=== PATIENT | male | born 1995 | race Caucasian/White ===

== ENCOUNTER 2021-12-07 20:13 | Emergency (ER) | payer OTHER, BC ==
[~2021-12-07] VITALS: Ht 185 cm; Wt 93.0 kg
[2021-12-07 20:43] VITALS: BP 121/71
--- NOTE | 2021-12-07 21:40 | ED General ---
General Chief Complaint: Respiratory Problems Stated Complaint: WC,SOB,HEADACHE Nursing Triage Note: pt presents with known carbon-monixide exposure. reports h/a, sob. 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 His coworker presented earlier in the evening and was diagnosed with carbon monoxide poisoning with a carboxyhemoglobin level of 15. They were running a new oil heater in the garage and possibly did not have adequate ventilation. Apparently multiple coworkers had similar symptoms. He is feeling better now but states he still feels dizzy when he is up and moving around. Allergies and Home Medications Allergies Coded Allergies: No Known Drug Allergies (Unverified , 12/12/10) Patient Home Medication List Home Medication List Reviewed: Yes Review of Systems Review of Systems Constitutional: no symptoms reported EENTM: no symptoms reported Respiratory: see HPI Cardiovascular: see HPI Gastrointestinal: no symptoms reported Genitourinary: no symptoms reported Musculoskeletal: no symptoms reported Skin: no symptoms reported Psychiatric/Neurological: See HPI Hematologic/Lymphatic: No Symptoms Reported Immunological/Allergic: no symptoms reported Past Hxcpiut-Tnsrde-Cfglgn Hx Patient Social History Tobacco Use?: Yes Tobacco type used: Cigarettes Smoking Status: Current Everyday Smoker Substance use?: No Alcohol Use?: No Pt feels they are or have been: No Immunizations Up To Date Influenza Vaccine Up-to-Date: No; Not Current Past Medical History Surgeries: Yes Adenoidectomy, Tonsillectomy, Vasectomy Respiratory: No Cardiac: No Neurological: No Reproductive Disorders: No Gastrointestinal: No Musculoskeletal: No Endocrine: No HEENT: No Cancer: No Psychosocial: No Integumentary: No Physical Exam Vital Signs Vital Signs - First Documented 12/07/21 20:43 Temp 36.9 Pulse 98 Resp 20 B/P (MAP) 121/71 (88) Pulse Ox 99 O2 Delivery OxyMask O2 Flow Rate 15.00 Capillary Refill : Height, Weight, BMI Height: '" Weight: lbs. oz. kg; 27.00 BMI Method: General Appearance: No Apparent Distress, WD/WN HEENT: PERRL/EOMI, Normal ENT Inspection Neck: Normal Inspection Respiratory: Lungs Clear, Normal Breath Sounds, No Accessory Muscle Use, No Respiratory Distress Cardiovascular: Regular Rate, Rhythm, No Edema, No Murmur Gastrointestinal: No Distended Extremity: Normal Inspection, No Pedal Edema Neurologic/Psychiatric: Alert, Oriented x3, No Motor/Sensory Deficits, Normal Mood/Affect Skin: Normal Color, Warm/Dry Progress/Results/Core Measures Suspected Sepsis SIRS Temperature: Pulse: 98 Respiratory Rate: 20 Blood Pressure 121 /71 Mean: 88 Results/Orders Lab Results Laboratory Tests Test 12/07/21 20:35 Range/Units Carboxyhemoglobin 15.6 H 0.5-2.5 % My Orders Orders - ADDIE JOLLEY MD Carboxyhemoglobin (12/07/21 20:51) Vital Signs/I&O 12/07/21 12/07/21 12/07/21 12/07/21 20:43 20:52 21:45 23:20 Temp 36.9 Pulse 98 83 79 85 Resp 20 20 18 17 B/P (MAP) 121/71 (88) Pulse Ox 99 99 99 99 O2 Delivery OxyMask OxyMask OxyMask Room Air O2 Flow Rate 15.00 15.00 15.00 Capillary Refill : Blood Pressure Mean: 88 Progress Note #1: Time: 21:39 Progress Note Patient was placed on high flow oxygen and carboxyhemoglobin level is pending. Vital signs are within normal limits. Progress Note #2: Progress Note Carboxyhemoglobin was elevated at 15.6. Patient was treated with a sufficient amount of time on high flow oxygen therapy. He was feeling improved and anxious to return home. Work comp paperwork was completed and he was discharged home. Departure Impression Primary Impression: Carbon monoxide poisoning Qualified Codes: T58.91XA - Toxic effect of carbon monoxide from unspecified source, accidental (unintentional), initial encounter Disposition: 01 HOME, SELF-CARE Condition: Improved Departure-Patient Inst. Decision time for Depature: 23:05 Referrals: NO,LOCAL PHYSICIAN (PCP/Family) Primary Care Physician Patient Instructions: Carbon Monoxide Poisoning Add. Discharge Instructions: Avoid smoking while you are recovering from carbon monoxide poisoning. You will recover faster if you refrain from smoking. Always work in a well ventilated area whenever any type of combustion is present. Return to care if you have worsening symptoms. All discharge instructions reviewed with patient and/or family. Voiced understanding. Scripts No Active Prescriptions or Reported Meds ADDIE JOLLEY MD Dec 07, 2021 21:40
== END 2021-12-07 23:26 | disposition home or self-care (01) ==
LOC: EDUNIT# 20:13 → ER FS 20:14
DX: T58.91XA Toxic effect of carbon monoxide from unspecified source, accidental (unintentional), initial encounter (principal); F17.210 Nicotine dependence, cigarettes, uncomplicated
CPT/HCPCS: 82375; 99282